=== PATIENT | female | born 2000 | race Caucasian/White ===

== ENCOUNTER 2020-02-08 17:12 | Emergency (ER) | payer OTHER, SELFPAY ==
--- NOTE | 2020-02-08 17:21 | ED.FEMALEGU ---
HPI - Female Genitourinary General Chief complaint: Urogenital-Female Stated complaint: uti Time Seen by Provider: 02/08/20 17:26 Source: patient and RN notes reviewed Mode of arrival: ambulatory Limitations: no limitations History of Present Illness HPI Narrative: 19-year-old female presents with concern for possible urinary tract infection. Reports she was treated at [facility] for urinary tract infection within the past month that returned. She reports dysuria, frequency, suprapubic pressure, suprapubic discomfort, pain with sex. Reports abnormal white odorous discharge, vaginal irritation. Reports she is in a monogamous relationship, denies chance of exposure to STDs. MD elicited complaint: UTI Related Data Home Medications Medication Instructions Recorded Confirmed lamotrigine 02/08/20 Allergies Allergy/AdvReac Type Severity Reaction Status Date / Time No Known Allergies Allergy Unverified 03/23/11 12:34 Review of Systems Review of Systems: Narrative: CONSTITUTIONAL: Denies malaise, chills, sweats, or fever. CARDIOVASCULAR: Denies chest pain, palpitations, or edema. RESPIRATORY: Denies dyspnea. GASTROINTESTINAL: Denies abdominal pain, nausea, vomiting, diarrhea GENITOURINARY: Reports dysuria, urine frequency, white odorous vaginal discharge. Denies flank pain or hematuria. SKIN: Denies rash or itching. MUSCULOSKELETAL: Denies back pain or myalgia. NEUROLOGIC: Denies headache. All systems reviewed & are unremarkable except as noted in HPI and below PMFSH Comments At time of signature, agree with nursing past medical, surgical, social and family history. There is no relevant family history pertinent to the presenting complaint Exam Narrative: Exam Narrative: GENERAL: Well-appearing, well-nourished, and in no acute distress. HEAD: Normocephalic. EYES: PERRLA, conjunctivae clear. NECK: Supple. No lymphadenopathy CHEST: Clear to auscultation. No respiratory distress. HEART: Regular rate and rhythm. No murmur heard. Normal peripheral pulses. ABDOMEN: Soft, nontender upon palpation, nondistended, normal active bowel sounds, no palpable or pulsatile masses, no guarding. No CVA tenderness SKIN: Warm, dry, no rash. NEURO: Alert and oriented x3. PSYCH: Normal mood and affect : External Female Exam: normal external appearance Speculum Exam - Vagina: normal appearance of the vagina, normal palpation and abnormal vaginal discharge white and malodorous Speculum Exam - Cervix: normal appearance of the cervix and normal palpation (No cervical motion tenderness) Bimanual exam- vagina & uterus: normal bimanual exam, normal palpation and non-tender Bimanual Exam- Adnexa, other: normal adnexae Course Course Emergency Course: Patient is aware of diagnosis, understands and agrees to treatment plan. Anticipatory guidance given. Patient agrees to follow-up as directed and is aware of reasons to seek care at the emergency department. Portions of this record may have been created with voice recognition software Vital Signs Vital signs: Vital Signs Temperature 98.8 F 02/08/20 17:25 Pulse Rate 76 02/08/20 17:25 Respiratory Rate 16 02/08/20 17:25 Blood Pressure 131/83 02/08/20 17:25 Pulse Oximetry 100 02/08/20 17:25 Temperature 98.8 F 02/08/20 17:25 Pulse Rate 76 02/08/20 17:25 Respiratory Rate 16 02/08/20 17:25 Blood Pressure 131/83 02/08/20 17:25 Pulse Oximetry 100 02/08/20 17:25 Reviewed. MDM - Female Genitourinary MDM Narrative Medical decision making narrative: Exam findings and UA show no acute concerns or changes; patient is non-toxic appearing and is in no distress. Patient is appropriate for outpatient treatment and follow-up. Differential Diagnosis Differential diagnosis: Likely urinary tract infection, bacterial vaginosis, cervicitis and vaginitis Lab Data Attestation: I reviewed the patient's lab results. Labs: Urine Glucose Nega
[2020-02-08 17:25] VITALS: BP 131/83; PULSE 76; RESP 16; TEMP 37.1; O2SAT 100
== END 2020-02-08 17:53 | disposition home or self-care (01) ==
PROVIDERS: Emergency Provider Nurse Practitioner
DX: N76.0 Acute vaginitis (principal)
CPT/HCPCS: 81003; 87077; 87086; 87088; 99213; G0463

== ENCOUNTER 2021-03-10 13:41 | Observation (INO) | payer OTHER, SELFPAY ==
[2021-03-10] VITALS (24 sets, daily range): BP systolic 91–138; BP diastolic 59–96; PULSE 62–97; RESP 13–28; TEMP 36.8–37.1; O2SAT 90–100; BMI 22.8
--- NOTE | ~2021-03-10 | CT_ITS ---
EXAMINATION: CT abdomen pelvis w con DATE: 03/10/2021 17:27 INDICATION: Abdominal pain TECHNIQUE: Computed tomography (CT) of the abdomen and pelvis was performed with 100 mL Omnipaque-350 intravenous contrast. Automated exposure control and iterative reconstruction technique were employe d. The dose-length product was 309.33 mGy-cm. COMPARISON: None FINDINGS: Lung bases are clear. Heart size is normal. No pericardial or pleural effusion. Liver, gallbladder, s pleen, pancreas, bilateral adrenal glands and kidneys are normal. Bowels including the appendix are n ormal. Bladder, anteverted uterus and bilateral adnexa are unremarkable. Small amount of likely physi ologic free fluid at the cul-de-sac. No abscess or free intraperitoneal gas. No pathologically enlarg ed abdominal or pelvic lymphadenopathy. Bones are unremarkable. IMPRESSION: 1. No acute intra-abdominal/pelvic process. Reviewed, dictated and finalized at location A.
[2021-03-10 14:10] LABS: Basophils Percent Auto 0.3 % (0.2-1.2); Eosinophils Percent Auto 0.2 % (0-4.4); Hematocrit 43.3 % (37.0-47.0); Hemoglobin 14.7 g/dL (12.0-15.0); Immature Granulocyte Absolute 0.07 K/mm3 (0.00-0.031); Immature Granulocyte Percent A 0.7 % (0-0.5); Lymphocytes Absolute Auto 0.46 K/mm3 (0.9-3.2); Lymphocytes Percent Auto 4.3 % (18.3-44.2); Mean Corpuscular HGB Conc 33.9 g/dl (32-36); Mean Corpuscular Hemoglobin 30.9 pg (26-34); Mean Platelet Volume 10.2 fl (7.4-10.4); Monocytes Absolute Auto 0.6 K/mm3 (0.1-0.6); Monocytes Percent Auto 5.3 % (2.6-8.5); Neutrophils Absolute Auto 9.5 K/mm3 (1.3-6.7); Neutrophils Percent Auto 89.2 % (45.5-73.1); Platelet Count Result 262 k/mm3 (150-375); Red Blood Count 4.76 M/mm3 (4.2-5.4); Red Cell Distribution Width 13.4 % (11.5-14.5); White Blood Count 10.6 K/mm3 (4.5-10.0)
[2021-03-10 14:25] LABS: Alanine Aminotransferase 23 U/L (4-35); Alkaline Phosphatase 62 U/L (38-126); Anion Gap 15 mmol/L (8-16); Aspartate Amino Transferase 25 U/L (14-36); Bilirubin,Total 2.1 mg/dL (0.2-1.3); Blood Urea Nitrogen 13 mg/dL (7-17); Calcium 10.3 mg/dL (8.4-10.2); Carbon Dioxide 22 mmol/L (22-30); Chloride 102 mmol/L (98-107); Estimated CRCL calculation 123 ml/min; Estimated Glomerular Filt Rate > 60; Glucose 112 mg/dL (65-105); Lipase 44 U/L (23-300); Potassium 3.5 mmol/L (3.4-5.0); Sodium 139 mmol/L (137-145)
--- NOTE | 2021-03-10 15:17 | ED.NAVMDI ---
HPI - Nausea/Vomiting/Diarrhea General Chief complaint: Nausea/Vomiting/Diarrhea Stated complaint: N/V since last night Time Seen by Provider: 03/10/21 15:14 Source: RN notes reviewed History of Present Illness HPI Narrative: Patient presents to the emergency department from home for nausea vomiting diarrhea. Patient states symptoms began 13 hours ago states that she is had numerous episodes of nausea vomiting and diarrhea she also reports diffuse abdominal pain described as cramping she notes subjective fevers denies any chest pain shortness of breath or any other symptoms states she took no medications at home for the symptoms Related Data Home Medications Medication Instructions Recorded Confirmed hydroxyzine pamoate 25 mg PO DAILY 03/10/21 03/10/21 lamotrigine 150 mg PO DAILY 03/10/21 03/10/21 norethindrone-e.estradiol-iron 1 tablet PO DAILY 03/10/21 03/10/21 [ (28)] valacyclovir 500 mg PO DAILY 03/10/21 03/10/21 Allergies Allergy/AdvReac Type Severity Reaction Status Date / Time No Known Allergies Allergy Verified 03/10/21 15:48 Review of Systems Review of Systems: Narrative: Gen.: Reports subjective fevers and chills ENT: Denies congestion Respiratory: Denies shortness of breath or cough CV: Denies chest pain or palpitations GI: See HPI denies burning, urgency, frequency or hematuria Musculoskeletal: Denies back pain or muscle pain Neuro: Denies numbness, tingling, weakness or focal weakness Skin: Denies rash Except as documented, all other systems reviewed and negative [facility] Past Medical History Medical History (Updated 03/10/21 @ 20:58 by Ortega Gagnon DO) Patient denies significant medical history Social History Social History (Updated 03/10/21 @ 15:18 by Ortega Gagnon DO) Tobacco type: e-cigarettes/vaping Gender identity (if verbalized by the patient): Female Exam Narrative: Exam Narrative: APPEARANCE: No acute distress, nontoxic, resting in bed EYES: EOMI HEENT: Normocephalic, atraumatic, oral mucosa dry RESPIRATORY: No respiratory distress Clear to auscultation bilaterally with no rhonchi wheezing or rales. CARDIOVASCULAR: Regular rate and rhythm without murmurs rubs or gallops. ABDOMINAL: Soft, nondistended diffusely tender to palpation no rebound or guarding MUSCULOSKELETAl: Moves all extremities. No clubbing, cyanosis or edema. NEURO: Awake and alert. Following commands, speech normal, no focal deficits SKIN:: Warm, dry. No rashes lesions or abrasions PSYCHIATRIC: Normal affect/mood, Course Course Emergency Course: Patient continues to have nausea and vomiting with p.o. challenges given several boluses of fluids still feels dizzy with standing will admit at this time Discussed with Dr. Cesar presentation work-up agrees with admission at this time Vital Signs Vital signs: Vital Signs Temperature 98.8 F 03/10/21 13:58 Pulse Rate 96 03/10/21 13:58 Blood Pressure 138/83 03/10/21 13:58 Pulse Oximetry 100 03/10/21 13:58 Temperature 98.8 F 03/10/21 13:58 Pulse Rate 68 03/10/21 20:25 Respiratory Rate 22 H 03/10/21 20:25 Blood Pressure 106/70 03/10/21 20:25 Pulse Oximetry 100 03/10/21 20:25 MDM - Nausea/Vomiting/Diarrhea Lab Data Result diagrams: 03/10/21 13:55 03/10/21 13:55 Labs: Lab Results 03/10/21 03/10/21 03/10/21 Range/Units 13:55 13:55 16:52 WBC 10.6 H (4.5-10.0) K/mm3 RBC 4.76 (4.2-5.4) M/mm3 Hgb 14.7 (12.0-15.0) g/dL Hct 43.3 (37.0-47.0) % MCV 91.0 (80-100) fl MCH 30.9 (26-34) pg MCHC 33.9 (32-36) g/dl RDW 13.4 (11.5-14.5) % Plt Count 262 (150-375) k/mm3 MPV 10.2 (7.4-10.4) fl Immature Gran % (Auto) 0.7 H (0-0.5) % Neut % (Auto) 89.2 H (45.5-73.1) % Lymph % (Auto) 4.3 L (18.3-44.2) % [place] % (Auto) 5.3 (2.6-8.5) % Eos % (Auto) 0.2 (0-4.4) % Baso % (Auto) 0.3 (0.2-1.2) % Lymph # (Auto) 0.4
[2021-03-10] MEDS: SODIUM CHLORIDE 0.9% IV 1,000 ML 999 ML IV CONT ×3 (15:38→18:45)
[2021-03-10] MEDS: FAMOTIDINE 20 MG/2 ML VIAL IV PUSH (15:39)
[2021-03-10] MEDS: KETOROLAC 30 MG/ML VIAL (*BKC) IV PUSH (15:39)
[2021-03-10] MEDS: ONDANSETRON INJ 4 MG/2 ML VIAL IV PUSH ×2 (15:39→22:15)
--- NOTE | 2021-03-10 15:47 | PC.NURSE ---
Pt refusing to provide urine sample at this time
--- NOTE | 2021-03-10 16:10 | PC.NURSE ---
Pt attempting to use bed torrez at this time
[2021-03-10 17:04] LABS: Add Urine Microscopic? YES; Appearance Urine Clear (Clear); Bacteria Urine Trace /hpf; Bilirubin Urine Negative (Negative); Blood Urine Negative (Negative); Color Urine Yellow (Yellow); Glucose Urine UA Negative (Negative); Ketones Urine 2+ mg/dL (Negative); Leukocyte Esterase Ur Trace LEU/UL (Negative); Mucus Urine Rare /lpf; Nitrate Urine Negative (Negative); Protein Urine 1+ mg/dL (Negative); RBC Urine 0-2 /hpf (0-2); Specific Grav Ur 1.026 (1.001-1.035); Squamous Epithelial Cell Urine Moderate /hpf (Few); Urobilinogen Urine Negative mg/dL (<2.0); WBC Urine 0-3 /hpf
[2021-03-10] MEDS: PROMETHAZINE HCL 25 MG/ML AMPUL 12.5 MG IV PUSH (17:58)
[2021-03-10] MEDS: diphenhydrAMINE HCl INJ 50 MG/ML VIAL 25 MG IV PUSH (20:33)
[2021-03-10] MEDS: SODIUM CHLORIDE 0.9% IV 1,000 ML 125 ML IV CONT (22:15)
--- NOTE | 2021-03-10 22:42 | PC.NURSE ---
This patient, Maribel Morales, was admitted to 2 Medical Room 261-01. Patient/family oriented to hospital policies and general routines including ID bracelet, bed and alarms, visiting hours, pain management, procedures, bathroom and other care routines, personal items, smoking policy, room service/diet, and visiting hours. Information on how to activate the Rapid Response Team has been discussed. Patient/Family are encouraged to report perceived risks to care and to ask questions if they do not understand what they are told or what they should do. 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
[2021-03-11 05:14] VITALS: BP 127/69; PULSE 77; RESP 18; TEMP 36.8; O2SAT 98
[2021-03-11 06:14] LABS: Basophils Percent Auto 0.2 % (0.2-1.2); Hematocrit 34.7 % (37.0-47.0); Hemoglobin 11.9 g/dL (12.0-15.0); Immature Granulocyte Percent A 0.5 % (0-0.5); Lymphocytes Percent Auto 10.2 % (18.3-44.2); Mean Corpuscular HGB Conc 34.3 g/dl (32-36); Mean Corpuscular Hemoglobin 30.4 pg (26-34); Mean Corpuscular Volume 88.7 fl (80-100); Mean Platelet Volume 10.9 fl (7.4-10.4); Monocytes Percent Auto 8.2 % (2.6-8.5); Neutrophils Percent Auto 80.9 % (45.5-73.1); Platelet Count Result 230 k/mm3 (150-375); Red Blood Count 3.91 M/mm3 (4.2-5.4); Red Cell Distribution Width 13.4 % (11.5-14.5); White Blood Count 8.2 K/mm3 (4.5-10.0)
[2021-03-11 06:15] LABS: Immature Granulocyte Absolute 0.04 K/mm3 (0.00-0.031); Lymphocytes Absolute Auto 0.84 K/mm3 (0.9-3.2); Monocytes Absolute Auto 0.7 K/mm3 (0.1-0.6); Neutrophils Absolute Auto 6.7 K/mm3 (1.3-6.7)
[2021-03-11] MEDS: ONDANSETRON INJ 4 MG/2 ML VIAL IV PUSH ×2 (06:45→21:07)
[2021-03-11 06:54] LABS: Alanine Aminotransferase 19 U/L (4-35); Albumin Level 3.9 g/dL (3.5-5.1); Alkaline Phosphatase 39 U/L (38-126); Anion Gap 12 mmol/L (8-16); Aspartate Amino Transferase 23 U/L (14-36); Bilirubin,Total 1.3 mg/dL (0.2-1.3); Blood Urea Nitrogen 7 mg/dL (7-17); Carbon Dioxide 19 mmol/L (22-30); Chloride 105 mmol/L (98-107); Estimated CRCL calculation 144 ml/min; Estimated Glomerular Filt Rate > 60; Glucose 102 mg/dL (65-105); Potassium 3.4 mmol/L (3.4-5.0); Sodium 136 mmol/L (137-145)
[2021-03-11 09:42] VITALS: BMI 22.8
[2021-03-11 10:28] VITALS: O2SAT 98
[2021-03-11] MEDS: PROMETHAZINE HCL 25 MG/ML AMPUL 12.5 MG IV PUSH (10:38)
[2021-03-11] MEDS: SODIUM CHLORIDE 0.9% IV 1,000 ML 125 ML IV CONT ×2 (10:39→18:35)
[2021-03-11] MEDS: lamoTRIgine 25 MG TABLET 50 MG PO ×2 (11:26→21:06)
[2021-03-11] MEDS: hydrOXYzine pamoate 25 MG CAPSULE PO (11:26)
[2021-03-11] MEDS: lamoTRIgine 100 MG TABLET PO ×2 (11:26→21:07)
[2021-03-11] MEDS: valACYclovir HCL 500 MG TABLET PO ×2 (11:27→21:07)
--- NOTE | 2021-03-11 12:15 | PM.IMHP ---
H&P: HPI History of Present Illness Date/Time: 03/11/21 12:15 Chief Complaint: Intractable nausea/vomiting Narrative: Date of Service is 03/11/21 1215 The supervising physician for this history and physical is Dr Judit Medeiros. Maribel Morales is a pleasant 20yo F with medical history of borderline personality disorder, bipolar disorder, post-traumatic stress disorder, history of substance abuse clean for the last 5 months after rehab, anxiety with panic attacks, history of anorexia nervosa who presented to the ED for evaluation of nausea, vomiting, abdominal pain and chills that began 2 evenings ago. She describes she had some soup at a restaurant and several hours later developed sudden onset vomiting and diarrhea throughout the night. Symptoms continued into yesterday morning and when she could not keep any food or drink down she presented to ED for further evaluation. She describes full body aches and cold sweats intermittently since onset of other symptoms. She denies having similar symptoms in the past. She denies red or black blood in bowel movements. In the ED: CT abdomen/pelvis shows no etiology to explain her symptoms. Given 3L IV boluses of normal saline. Failed fluid challenge and still dizzy with walking and is admitted to the hospitalist service in observation status for management of intractable nausea/vomiting. Mild hypokalemia this AM which was repleted. Lipase and LFTs/bilirubin all normal. Urinalysis not suggestive of infection. Review of Systems Review of Systems: Narrative: Twelve systems were reviewed with pertinent positives and negatives as per HPI. Except as documented, all other systems were reviewed and are negative. [facility] Past Medical History Medical History (Updated 03/11/21 @ 13:45 by Taina Johansen PA-C) History of anorexia nervosa History of substance abuse Clean since Sep 2020 after rehab but was previously abusing adderall, cocaine, ketamine Psychiatric disorder Patient reports diagnoses of borderline personality disorder, bipolar disorder, anxiety with panic attacks, post traumatic stress disorder, recovering from anorexia nervosa Surgical History Surgical History (Updated 03/11/21 @ 13:18 by Taina Johansen PA-C) S/P T&A (status post tonsillectomy and adenoidectomy) Age 1 Social History Social History (Updated 03/11/21 @ 13:24 by Taina Johansen PA-C) Social History: Maribel lives at home with her parents and siblings currently as she does each summer, normally lives at school in [place], [place]. She is in college studying psychology. She is interviewed separately from visiting family members with patient and family's permission. She reports history of substance abuse including adderall, ketamine, and cocaine for which she went to rehab in Jul 2020. She did well until she relapsed a few weeks later after a friend of fentanyl overdose. She has been clean of these substances since Sep 2020. She reports using marijuana by vape pen regularly - a few times per week - to help her cope with anxiety and panic. This is decreased from her previous usage of marijuana multiple times per day in the past. She is also in recovery of anorexia nervosa but reports she has been doing well since Sep 2020. She uses alcohol occasionally, twice per month socially. Her main psychiatrist is Dr Elena Santillan and her PCP is Dr Josie Obrien. She is full code status and designates her mother, Christine, to make medical decisions for her if she is not able. Smoking status: Current every day smoker Alcohol intake: current Alcohol use details: 2 drinks per month socially Substance use: current Substance use type: former substance user and marijuana Occupation/Education: student Gender identity (if verbalized by the patient): Female Spiritual care concerns: No Meds Home Medications and Allergies Home Medications Medication Instructions Recorded Confirmed Type hydroxyzine p
[2021-03-11 14:00] VITALS: BP 118/70; PULSE 76; RESP 16; TEMP 36.5; O2SAT 98
--- NOTE | 2021-03-11 14:52 | PC.NURSE ---
spoke with pt's mother this morning regarding the pt's home medication of ; pt's mother stated that since pt will only be in the hospital for 1 night they were not worried about her taking it and chose to leave it at home.
[2021-03-11 18:12] VITALS: PULSE 74; TEMP 36.9; O2SAT 98
[2021-03-11 20:00] VITALS: PULSE 75; RESP 18; O2SAT 100
[2021-03-11 20:40] VITALS: BP 134/71; PULSE 75; RESP 18; TEMP 37.1; O2SAT 100
[2021-03-11] MEDS: ACETAMINOPHEN 325 MG TABLET 650 MG PO (21:07)
[2021-03-12] MEDS: SODIUM CHLORIDE 0.9% IV 1,000 ML 125 ML IV CONT ×2 (01:37→09:01)
[2021-03-12] MEDS: ONDANSETRON INJ 4 MG/2 ML VIAL IV PUSH ×2 (01:39→06:34)
[2021-03-12 04:50] VITALS: BP 133/76; PULSE 62; RESP 18; TEMP 36.3; O2SAT 100
[2021-03-12 05:50] LABS: Hemoglobin 12.1 g/dL (12.0-15.0); Mean Corpuscular HGB Conc 34.6 g/dl (32-36); Mean Corpuscular Hemoglobin 30.9 pg (26-34); Mean Corpuscular Volume 89.5 fl (80-100); Mean Platelet Volume 10.7 fl (7.4-10.4); Platelet Count Result 236 k/mm3 (150-375); Red Blood Count 3.91 M/mm3 (4.2-5.4); Red Cell Distribution Width 13.4 % (11.5-14.5); White Blood Count 6.3 K/mm3 (4.5-10.0)
[2021-03-12 06:01] LABS: Anion Gap 10 mmol/L (8-16); Blood Urea Nitrogen 5 mg/dL (7-17); Calcium 8.8 mg/dL (8.4-10.2); Carbon Dioxide 22 mmol/L (22-30); Chloride 104 mmol/L (98-107); Estimated CRCL calculation 144 ml/min; Estimated Glomerular Filt Rate > 60; Glucose 101 mg/dL (65-105); Magnesium 1.7 mg/dL (1.6-2.3); Potassium 3.5 mmol/L (3.4-5.0); Sodium 136 mmol/L (137-145)
[2021-03-12] MEDS: MAGNESIUM SULF 2 GM/WATER 50ML 2 GM/50 ML BAG IVPB (09:00)
[2021-03-12] MEDS: PROCHLORPERAZINE EDISYLATE 10 MG/2 ML VIAL IV PUSH (15:16)
[2021-03-12 15:53] VITALS: BP 131/80; PULSE 62
--- NOTE | 2021-03-12 16:38 | PM.DS ---
DS: Admitting Diagnosis Admitting Diagnosis Admitting Diagnosis: Intractable nausea and vomiting DS: Discharge Diagnosis Discharge Diagnosis (1) Nausea and vomiting: Qualifiers: Vomiting Intractability: intractable Vomiting type: unspecified Qualified Code(s): R11.2 - Nausea with vomiting, unspecified Code(s): R11.2 - Nausea with vomiting, unspecified Status: Acute Assessment and Plan: Date of Admission 03/10/21 Date of Discharge 03/12/21 Maribel Morales is a pleasant 20yo F with medical history of borderline personality disorder, bipolar disorder, post-traumatic stress disorder, history of substance abuse clean for the last 5 months after rehab, anxiety with panic attacks, history of anorexia nervosa, regular marijuana use who presented to the ED for evaluation of nausea, vomiting, abdominal pain and chills that began 2 evenings ago. She describes she had some soup at a restaurant and several hours later developed sudden onset vomiting and diarrhea throughout the night. Symptoms continued into yesterday morning and when she could not keep any food or drink down she presented to ED for further evaluation. She describes full body aches and cold sweats intermittently since onset of other symptoms. She denies having similar symptoms in the past. She denies red or black blood in bowel movements. CT abdomen/pelvis shows no etiology to explain her symptoms. Given 3L IV boluses of normal saline in the ED. Failed fluid challenge and was still dizzy with walking and was admitted to the hospitalist service in observation status for management of intractable nausea/vomiting. Mild hypokalemia which was repleted, suspect related to GI loss. Lipase and LFTs/bilirubin all normal. Urinalysis not suggestive of infection. She had no further diarrhea after being admitted thus no stool cultures could be sent. Symptoms may be related to a gastroenteritis. We discussed the possibility of cannabis hyperemesis syndrome or type of cyclic vomiting however she has not had these symptoms before. She verbalizes understanding and expresses interest in quitting marijuana use if her symptoms would persist. She was treated with supportive care to include bowel rest, trials of clear liquids, IV hydration and antiemetics. She has tolerated some clear liquids today and is overall feeling better than yesterday. She is hemodynamically stable for discharge today 03/12/21 with instructions to follow up with PCP next week. Patient presented with sudden onset of nausea, vomiting, diarrhea. CT abd/pel without acute findings to explain her symptoms. This may be related to a gastroenteritis. Treated with supportive care with bowel rest, trial of clear liquids, IV fluid hydration and antiemetics. Compazine helped more than zofran or phenergan did. (2) Psychiatric disorder: Code(s): F99 - Mental disorder, not otherwise specified Status: Chronic Assessment and Plan: Patient notes history of borderline personality disorder, PTSD, anxiety with panic attacks, and bipolar disorder. History of substance abuse with adderall, ketamine, and cocaine from which she has been clean since Sep 2020 after rehab. Continue her home medications with hydroxyzine, lamictal (no history of seizures, lamictal is used for her mood disorders). Her psychiatrist is Dr Elena Santillan. DS: Summary Hospital Course Hospital Course: See above. Time Spent with Patient Time attestation: Total time spent providing and/or coordinating discharge services: 40 minutes Exam Narrative: Exam Narrative: General: Well-developed, female resting in bed in no acute distress. HEENT: Normocephalic, EOMI, oral mucosa moist. Cardiovascular: Rate and rhythm are regular. Respiratory: Lungs clear to auscultation bilaterally. Respirations even and non-labored. Tolerat
== END 2021-03-12 17:49 | disposition home or self-care (01) ==
LOC: ANHED 20:58 → ANH2MED 21:30
PROVIDERS: Emergency Medicine; Physician Assistant; Admitting Provider Internal Medicine; Emergency Provider Emergency Medicine; PCP Family Medicine; Visit Provider Internal Medicine
DX: R11.2 Nausea with vomiting, unspecified (principal); R19.7 Diarrhea, unspecified; R10.10 Upper abdominal pain, unspecified; F31.9 Bipolar disorder, unspecified; F43.10 Post-traumatic stress disorder, unspecified; F60.3 Borderline personality disorder; F41.9 Anxiety disorder, unspecified; F99 Mental disorder, not otherwise specified; F12.90 Cannabis use, unspecified, uncomplicated
CPT/HCPCS: 36415; 74177; 80048; 80053; 81001; 81025; 83690; 83735; 85025; 85027; 96361; 96365; 96374; 96375; 96376; 99285; A9270; G0378; J0780; J1200; J1885; J2405; J2550; J3475; J7030; Q9967

== ENCOUNTER 2021-03-15 10:35 | Emergency (ER) | payer OTHER, SELFPAY ==
[2021-03-15] VITALS (7 sets, daily range): BP systolic 126–147; BP diastolic 90–105; PULSE 78–116; RESP 16–21; TEMP 37.2; O2SAT 97–99
--- NOTE | 2021-03-15 10:40 | ECG_ITS ---
Measurements Intervals [place] Rate: 95 P: 71 TX: 104 QRS: 67 QRSD: 86 T: 47 QT: 331 QTc: 416 Interpretive Statements SINUS RHYTHM NONSPECIFIC ST & T-WAVE ABNORMALITY- ANTEROLAT/INF LEADS BASELINE ARTIFACT- I, AVR, AVL BORDERLINE ECG Electronically Signed On 03-15-2021 11:42:26 CDT by Sylvain Hermosillo D.O.
[2021-03-15 11:07] LABS: Basophils Absolute Auto 0.1 K/mm3 (0.0-0.1); Basophils Percent Auto 0.5 % (0.2-1.2); Eosinophils Percent Auto 0.4 % (0-4.4); Hematocrit 45.4 % (37.0-47.0); Hemoglobin 16.3 g/dL (12.0-15.0); Immature Granulocyte Absolute 0.04 K/mm3 (0.00-0.031); Immature Granulocyte Percent A 0.4 % (0-0.5); Lymphocytes Absolute Auto 2.61 K/mm3 (0.9-3.2); Lymphocytes Percent Auto 24.6 % (18.3-44.2); Mean Corpuscular HGB Conc 35.9 g/dl (32-36); Mean Corpuscular Hemoglobin 30.8 pg (26-34); Mean Corpuscular Volume 85.8 fl (80-100); Mean Platelet Volume 10.1 fl (7.4-10.4); Monocytes Absolute Auto 0.9 K/mm3 (0.1-0.6); Monocytes Percent Auto 8.4 % (2.6-8.5); Neutrophils Percent Auto 65.7 % (45.5-73.1); Platelet Count Result 415 k/mm3 (150-375); Red Blood Count 5.29 M/mm3 (4.2-5.4); Red Cell Distribution Width 13.2 % (11.5-14.5); White Blood Count 10.6 K/mm3 (4.5-10.0)
[2021-03-15 11:12] LABS: Add Urine Microscopic? YES; Appearance Urine Cloudy (Clear); Bacteria Urine Trace /hpf; Bilirubin Urine Negative (Negative); Blood Urine 1+ (Negative); Color Urine Amber (Yellow); Glucose Urine UA Negative (Negative); Ketones Urine 2+ mg/dL (Negative); Leukocyte Esterase Ur Negative LEU/UL (Negative); Mucus Urine Heavy /lpf; Nitrate Urine Negative (Negative); Protein Urine 2+ mg/dL (Negative); RBC Urine 0-2 /hpf (0-2); Specific Grav Ur 1.026 (1.001-1.035); Squamous Epithelial Cell Urine Rare /hpf (Few)
[2021-03-15 11:18] LABS: Alanine Aminotransferase 52 U/L (4-35); Albumin Level 5.3 g/dL (3.5-5.1); Alkaline Phosphatase 47 U/L (38-126); Anion Gap 18 mmol/L (8-16); Aspartate Amino Transferase 46 U/L (14-36); Bilirubin,Total 2.1 mg/dL (0.2-1.3); Blood Urea Nitrogen 17 mg/dL (7-17); Calcium 10.8 mg/dL (8.4-10.2); Carbon Dioxide 26 mmol/L (22-30); Chloride 94 mmol/L (98-107); Estimated CRCL calculation 99 ml/min; Estimated Glomerular Filt Rate > 60; Glucose 142 mg/dL (65-110); Lipase 177 U/L (23-300); Sodium 138 mmol/L (137-145)
--- NOTE | 2021-03-15 11:34 | ED.NAVMDI ---
HPI - Nausea/Vomiting/Diarrhea General Chief complaint: Nausea/Vomiting/Diarrhea Stated complaint: Heart Racing, Vomiting Time Seen by Provider: 03/15/21 11:09 History of Present Illness HPI Narrative: Nausea, vomiting, abdominal pain for a few days. She was admitted to the hospital 6 days ago for the same. She reports no improvement since discharge. She has diffuse abdominal cramps. No fever. Diarrhea has resolved. Related Data Home Medications Medication Instructions Recorded Confirmed hydroxyzine pamoate 25 mg PO TID PRN 03/10/21 03/11/21 lamotrigine 150 mg PO DAILY 03/10/21 03/10/21 norethindrone-e.estradiol-iron 1 tablet PO DAILY 03/10/21 03/10/21 [ ()] valacyclovir 500 mg PO DAILY 03/10/21 03/10/21 Allergies Allergy/AdvReac Type Severity Reaction Status Date / Time No Known Allergies Allergy Verified 03/15/21 10:46 Review of Systems Review of Systems: All systems reviewed & are unremarkable except as noted in HPI and below Constitutional: Constitutional: Denies chills and Denies fever(s) ENT: Reports system reviewed and no additional complaints, except as documented Cardiovascular: Cardiovascular: Denies chest pain Respiratory: Respiratory: Denies dyspnea Gastrointestinal: Gastrointestinal: Reports abdominal pain, Reports nausea and Reports vomiting Genitourinary: Genitourinary: Denies abnormal vaginal bleeding, Denies hematuria, Denies dysuria and Denies vaginal discharge Neurologic: Reports dizziness Psychiatric: Psychiatric: Reports anxiety PMFSH Past Medical History Medical History History of anorexia nervosa History of substance abuse Clean since Sep 2020 after rehab but was previously abusing adderall, cocaine, ketamine Psychiatric disorder Patient reports diagnoses of borderline personality disorder, bipolar disorder, anxiety with panic attacks, post traumatic stress disorder, recovering from anorexia nervosa Surgical History Surgical History S/P T&A (status post tonsillectomy and adenoidectomy) Age 1 Social History Social History Social History: Maribel lives at home with her parents and siblings currently as she does each summer, normally lives at school in [place], [place]. She is in college studying psychology. She is interviewed separately from visiting family members with patient and family's permission. She reports history of substance abuse including adderall, ketamine, and cocaine for which she went to rehab in Jul 2020. She did well until she relapsed a few weeks later after a friend of fentanyl overdose. She has been clean of these substances since Sep 2020. She reports using marijuana by vape pen regularly - a few times per week - to help her cope with anxiety and panic. This is decreased from her previous usage of marijuana multiple times per day in the past. She is also in recovery of anorexia nervosa but reports she has been doing well since Sep 2020. She uses alcohol occasionally, twice per month socially. Her main psychiatrist is Dr Elena Santillan and her PCP is Dr Josie Obrien. She is full code status and designates her mother, Christine, to make medical decisions for her if she is not able. Smoking status: Current every day smoker Alcohol intake: current Alcohol use details: 2 drinks per month socially Substance use: current Substance use type: former substance user and marijuana Gender identity (if verbalized by the patient): Female Spiritual care concerns: No Exam Const: General: healthy appearing, no acute distress and alert Orientation/consciousness: patient oriented x3 HENMT: Head: normal to inspection Neck: Neck: normal visual inspection Resp: Effort & Inspection: normal respiratory effort Auscultation: clear to auscultation bilaterally, no r
[2021-03-15] MEDS: ONDANSETRON INJ 4 MG/2 ML VIAL IV PUSH (11:55)
[2021-03-15] MEDS: SOD CHL IV CONT (11:55)
[2021-03-15] MEDS: DEXTROSE IV CONT (11:55)
[2021-03-15] MEDS: PANTOPRAZOLE SODIUM IV 40 MG VIAL IV PUSH (14:29)
== END 2021-03-15 14:33 | disposition home or self-care (01) ==
PROVIDERS: Nurse Practitioner; Emergency Provider Emergency Medicine; PCP Family Medicine
DX: R11.2 Nausea with vomiting, unspecified (principal); R19.7 Diarrhea, unspecified; R00.0 Tachycardia, unspecified; F60.3 Borderline personality disorder; F31.9 Bipolar disorder, unspecified; F41.9 Anxiety disorder, unspecified; F17.200 Nicotine dependence, unspecified, uncomplicated
CPT/HCPCS: 36415; 80053; 81001; 81025; 83690; 85025; 87077; 87086; 87088; 93005; 96361; 96374; 96375; 99284; C9113; J2405

== ENCOUNTER 2021-07-03 12:45 | Emergency (ER) | payer OTHER, SELFPAY ==
--- NOTE | ~2021-07-03 | XR_ITS ---
EXAMINATION: XR chest 1V portable DATE: 07/03/2021 13:32 INDICATION: Cough and shortness of breath TECHNIQUE: frontal view of the chest was obtained. COMPARISON: None FINDINGS: The lungs are clear with no focal airspace opacities, pulmonary edema, pleural effusion or pneumothor ax. The cardiomediastinal silhouette is normal. Visualized bones and soft tissues are unremarkable. IMPRESSION: 1. Normal chest radiograph. Reviewed, dictated and finalized at location [facility]. IMPRESSION: 1. Normal chest radiograph.
--- NOTE | ~2021-07-03 | CT_ITS ---
EXAMINATION: CTA chest PE abdomen pel DATE: 07/03/2021 14:31 INDICATION: Shortness of breath, cough TECHNIQUE: Computed tomography angiography (CTA) of the chest, abdomen and pelvis was performed with 100 mL Omnipaque-350 intravenous contrast timed to evaluate the pulmonary arteries. Coronal maximum i ntensity projection 3D-reconstructions were created by the technologist. Automated exposure control a nd iterative reconstruction technique were employed. Exam dose: 489.82 mGy-cm total exam DLP. COMPARISON: 07/03/2021 portable AP chest FINDINGS: There is diagnostic contrast enhancement of the pulmonary arteries and no evidence of pulmo nary embolism. No thoracic aortic aneurysm or dissection. Normal heart size. No pericardial or pleural effusion. There is prominent consolidation in the posteromedial left lower lobe consistent with left lower lobe pneumonia. There is patchy infiltrate of the middle lobe. The liver, spleen, pancreas, adrenal glands and kidneys are unremarkable. The gallbladder is present. No bile duct or pancreatic duct dilatation. Normal caliber of the abdominal aorta. No intraperitonea l or retroperitoneal or pelvic mass lesion or adenopathy or ascites. The uterus and adnexal areas and urinary bladder are unremarkable. Normal appendix. No bowel obstruction, bowel wall thickening, pneumatosis or intraperitoneal free air . Included skeletal structures are unremarkable. IMPRESSION: Posteromedial left lower lobe pulmonary consolidation and patchy middle lobe infiltrate No evidence of pulmonary embolism Reviewed, dictated and finalized at [facility]. Reviewed, dictated and finalized at location [facility]. IMPRESSION: Posteromedial left lower lobe pulmonary consolidation and patchy m iddle lobe infiltrate No evidence of pulmonary embolism
[2021-07-03 12:53] VITALS: BP 134/85; PULSE 96; RESP 18; TEMP 36.9; O2SAT 97
[2021-07-03 13:01] VITALS: O2SAT 97
--- NOTE | 2021-07-03 13:13 | ED.URI ---
HPI - URI/Sore Throat General Chief Complaint: Upper Respiratory Infection Stated Complaint: bad cold and flu Time Seen by Provider: 07/03/21 12:52 Source: patient and RN notes reviewed Mode of arrival: ambulatory Limitations: no limitations History of Present Illness HPI Narrative: This is a 21 year old female who presents for evaluation of worsening flu like symptoms. She reports 1 week ago she developed sore throat, body aches and cough. Her sore throat has resolved but she reports cough has worsening and her body aches are worse. She is waking up at night with sweats so she thinks she may be having fever. She was evaluated at an Urgent care on Monday, and she reports negative covid, negative strep test, and negative influenza. She has come to ER today because she has developed bilateral flank pain . It is worse on her left , and it is worse with coughing and movement. She also reports mild shortness of breath. She is taking DayQuil and tylenol and she is drinking plenty of water. She last took medication 1 hour ago. Related Data Home Medications Medication Instructions Recorded Confirmed hydroxyzine pamoate 25 mg PO TID PRN 03/10/21 03/11/21 lamotrigine 150 mg PO DAILY 03/10/21 03/10/21 norethindrone-e.estradiol-iron 1 tablet PO DAILY 03/10/21 03/10/21 [ (28)] valacyclovir 500 mg PO DAILY 03/10/21 03/10/21 Allergies Allergy/AdvReac Type Severity Reaction Status Date / Time No Known Allergies Allergy Verified 07/03/21 12:59 Review of Systems Review of Systems: All systems reviewed & are unremarkable except as noted in HPI and below Constitutional: Constitutional: Reports fever(s) (subjective) ENT: Reports sore throat Cardiovascular: Cardiovascular: Denies chest pain Respiratory: Respiratory: Reports cough and Reports dyspnea Gastrointestinal: Gastrointestinal: Reports abdominal pain, Denies diarrhea, Reports nausea and Denies vomiting Genitourinary: Genitourinary: Denies hematuria and Reports flank pain Musculoskeletal: Musculoskeletal: Reports back pain Endocrine: Endocrine: Reports excessive sweating PMFSH Past Medical History Medical History History of anorexia nervosa History of substance abuse Clean since Sep 2020 after rehab but was previously abusing adderall, cocaine, ketamine Psychiatric disorder Patient reports diagnoses of borderline personality disorder, bipolar disorder, anxiety with panic attacks, post traumatic stress disorder, recovering from anorexia nervosa Surgical History Surgical History S/P T&A (status post tonsillectomy and adenoidectomy) Age 1 Social History Social History Social History: Maribel lives at home with her parents and siblings currently as she does each summer, normally lives at school in [place], [place]. She is in college studying psychology. She is interviewed separately from visiting family members with patient and family's permission. She reports history of substance abuse including adderall, ketamine, and cocaine for which she went to rehab in Jul 2020. She did well until she relapsed a few weeks later after a friend of fentanyl overdose. She has been clean of these substances since Sep 2020. She reports using marijuana by vape pen regularly - a few times per week - to help her cope with anxiety and panic. This is decreased from her previous usage of marijuana multiple times per day in the past. She is also in recovery of anorexia nervosa but reports she has been doing well since Sep 2020. She uses alcohol occasionally, twice per month socially. Her main psychiatrist is Dr Elena Santillan and her PCP is Dr Josie Obrien. She is full code status and designates her mother, Christine, to make medical decisions for her if she is not able. Smoking status:
[2021-07-03 13:36] LABS: Basophils Absolute Auto 0.1 K/mm3 (0.0-0.1); Basophils Percent Auto 0.3 % (0.2-1.2); Eosinophils Absolute Auto 0.1 K/mm3 (0-0.3); Eosinophils Percent Auto 0.4 % (0-4.4); Hematocrit 39.1 % (37.0-47.0); Hemoglobin 13.6 g/dL (12.0-15.0); Immature Granulocyte Absolute 0.08 K/mm3 (0.00-0.031); Immature Granulocyte Percent A 0.5 % (0-0.5); Lymphocytes Percent Auto 11.6 % (18.3-44.2); Mean Corpuscular HGB Conc 34.8 g/dl (32-36); Mean Corpuscular Hemoglobin 32.1 pg (26-34); Mean Corpuscular Volume 92.2 fl (80-100); Mean Platelet Volume 10.1 fl (7.4-10.4); Monocytes Absolute Auto 1.3 K/mm3 (0.1-0.6); Monocytes Percent Auto 7.7 % (2.6-8.5); Neutrophils Percent Auto 79.5 % (45.5-73.1); Platelet Count Result 283 k/mm3 (150-375); Red Blood Count 4.24 M/mm3 (4.2-5.4); Red Cell Distribution Width 12.6 % (11.5-14.5); White Blood Count 16.4 K/mm3 (4.5-10.0)
[2021-07-03] MEDS: KETOROLAC 30 MG/ML VIAL (*BKC) IV PUSH (13:36)
[2021-07-03] MEDS: ONDANSETRON INJ 4 MG/2 ML VIAL IV PUSH (13:36)
[2021-07-03] MEDS: LACTATED RINGERS 1,000 ML 999 ML IV CONT (13:37)
[2021-07-03 13:41] LABS: Add Urine Microscopic? YES; Appearance Urine Cloudy (Clear); Bacteria Urine Trace /hpf; Bilirubin Urine Negative (Negative); Blood Urine Negative (Negative); Color Urine Yellow (Yellow); Glucose Urine UA Negative (Negative); Ketones Urine Negative (Negative); Leukocyte Esterase Ur 2+ LEU/UL (Negative); Mucus Urine Few /lpf; Nitrate Urine Negative (Negative); Protein Urine 1+ mg/dL (Negative); Specific Grav Ur 1.024 (1.001-1.035); Squamous Epithelial Cell Urine Moderate /hpf (Few)
[2021-07-03 13:47] LABS: INR 1.1; Prothrombin Time 14.2 Seconds (11.1-14.7)
[2021-07-03 13:48] LABS: Partial Thromboplastin Time 32.2 SECONDS (22.3-36.8)
[2021-07-03 13:50] LABS: D Dimer 1.52 ug/mL (<0.48)
[2021-07-03 13:52] LABS: Alanine Aminotransferase 18 U/L (4-35); Albumin Level 4.5 g/dL (3.5-5.1); Alkaline Phosphatase 59 U/L (38-126); Anion Gap 8 mmol/L (8-16); Aspartate Amino Transferase 21 U/L (14-36); Bilirubin,Total 0.9 mg/dL (0.2-1.3); Blood Urea Nitrogen 9 mg/dL (7-17); Calcium 9.6 mg/dL (8.4-10.2); Carbon Dioxide 24 mmol/L (22-30); Chloride 103 mmol/L (98-107); Estimated CRCL calculation 174 ml/min; Estimated Glomerular Filt Rate > 60; Glucose 128 mg/dL (65-110); Lipase 23 U/L (23-300); Magnesium 2.2 mg/dL (1.6-2.3); Potassium 3.9 mmol/L (3.4-5.0); Sodium 135 mmol/L (137-145)
[2021-07-03 14:30] VITALS: BP 104/60; PULSE 71; RESP 18; O2SAT 98
[2021-07-03 16:55] VITALS: BP 110/74; PULSE 85; RESP 18; O2SAT 99
== END 2021-07-03 17:00 | disposition home or self-care (01) ==
PROVIDERS: Emergency Provider General Practice; PCP Family Medicine
DX: J18.9 Pneumonia, unspecified organism (principal); F17.200 Nicotine dependence, unspecified, uncomplicated
CPT/HCPCS: 36415; 71045; 71275; 74177; 80053; 81001; 81025; 83690; 83735; 85025; 85380; 85610; 85730; 96361; 96365; 96367; 96375; 99284; J0456; J0696; J1885; J2405; J7120; Q9967